=== PATIENT | female | born 1945 | race Caucasian/White ===

== ENCOUNTER → 2017-10-16 | Outpatient (CLI) | payer OTHER | LOC: FIMAGING 09:54 | PROVIDERS: ATTEND Nurse Practitioner Adult Health | DX: Z12.31 Encounter for screening mammogram for malignant neoplasm of breast (principal) ==

== ENCOUNTER → 2017-10-18 | Outpatient (CLI) | payer OTHER | LOC: FIMAGING 08:55 | PROVIDERS: ATTEND Nurse Practitioner Adult Health | DX: R19.01 Right upper quadrant abdominal swelling, mass and lump (principal); R06.02 Shortness of breath ==

== ENCOUNTER 2018-11-07 15:35 | Inpatient (IN) | payer OTHER ==
--- NOTE | 2018-11-07 15:52 | EDPHY ---
H & P Stated Complaint: Dx c flu today, breath Tx x2, low sats. Denies N/V/D. Time Seen by Provider: 11/07/18 15:52 - Personal History Current Tetanus/Diphtheria Vaccine: Unsure - Medical/Surgical History Hx Asthma: No Hx Chronic Respiratory Disease: No Hx Diabetes: No Hx Cardiac Disease: No Hx Renal Disease: No Hx Cirrhosis: No Hx Alcoholism: No Hx HIV/AIDS: No Hx Splenectomy or Spleen Trauma: No Other PMH: none - Social History Smoking Status: Former smoker Constitutional: Initial Vital Signs Temperature (C) 36.7 C 11/07/18 15:41 Heart Rate 85 11/07/18 15:41 Respiratory Rate 18 11/07/18 15:41 Blood Pressure 119/83 H 11/07/18 15:41 O2 Sat (%) 96 11/07/18 15:41 O2 Delivery Mode Room Air Allergies/Adverse Reactions: No Known Allergies Allergy (Verified 11/07/18 15:40) Home Medications: Medication Instructions Recorded Levothyroxine [Synthroid 100 mcg 100 mcg PO DAILY06 05/25/13 (RX)] Liothyronine Sodium [Cytomel 25 12.5 mcg PO DAILY 05/25/13 mcg (RX)] Sertraline HCl [Zoloft 100mg (RX)] 100 mg PO DAILY 05/25/13 Medical Decision Making ED Course/Re-evaluation: CHIEF COMPLAINT: Shortness of breath HISTORY OF PRESENT ILLNESS: 73-year-old female with a 3 day history of influenza. She was at Urgent Care for 2 or 3 hr prior to her presentation here. She had a chest x-ray done that was unremarkable. She tested positive for influenza. There are no laboratory studies done. They gave her couple nebulizer treatments but she still has very severe wheezing and is still working hard to breathe and still slightly hypoxemic in the high 80s so they sent her here for further evaluation. REVIEW OF SYSTEMS: A comprehensive 10 system review of systems is otherwise negative aside from elements mentioned in the history of present illness and medical decision making. PHYSICAL EXAM: HR, BP, O2 Sat, RR. Temp noted General Appearance: Alert, well hydrated, appropriate, and non-toxic appearing. Head: Atraumatic without scalp tenderness or obvious injury Eyes: Pupils equal, round, reactive to light and accommodation, EOMI, no trauma , no injection. Ears: Clear bilaterally, no perforation, normal landmarks Nose: Atraumatic, no rhinorrhea, clear. Throat: There is no erythema or exudates, no lesions, normal tonsils, mucus membranes moist. Neck: Supple, 2+ carotid upstroke, nontender, no lymphadenopathy. Respiratory: Significant wheezes with poor air movement in all lung delarosa. I reviewed the chest x-ray which is unremarkable for infiltrate. No focal decrease in breath sounds. Prolonged expiratory phase. Cardiovascular: Regular rate and rhythm, no murmurs, rubs, or gallops. Bilateral carotid, radial, dorsalis pedis, and posterior tibial pulses intact. Good capillary refill all extremities. Gastrointestinal: Abdomen is soft, nontender, non-distended, no masses, no rebound, no guarding, no peritoneal signs. Musculoskeletal: Normal active ROM of all extremities, atraumatic. Neurological: Alert, appropriate, and interactive. The patient has normal DTRs and non-focal cranial nerves, motor, sensory, and cerebellar exam. Skin: No rashes, good turgor, no nodules on palpation. Past medical history: Asthma as a younger individual Past surgical history: Noncontributory Family history: Noncontributory Social history: Lives half the year here and half in [place]. Has been here quite a while and is not new to altitude. She is here with her daughter. She is generally quite healthy. And has not had any significant asthma exacerbation DIAGNOSTICS/PROCEDURES/CRITICAL CARE TIME: Study: PA and Lateral Chest X-ray Indication: Interpreted from [facility] urgent care Results: After viewing the images myself on the PACS system. My interpretation of the images is: Mild bronchitis no infiltrate. The radiologist interpretation is pending at the time of this dictation. DIFFERENTIAL DIAGNOSIS: The differential diagnosis for the patient's shortness of breath and hypoxemia included but was not limited to pneumonia, myocardial infarction, acute mountain sickness, high altitude pulmonary edema, congestive heart failure, and pulmonary embolus. MEDICAL DECISION MAKING: This patient is able to maintain a room air oxygen saturation of 90-92% by working quite hard. I gave her a duo nebulizer treatment. I gave her 125 of Solu-Medrol. I have discussed the case with Dr. stone from the hospitalist service and she will accept the patient. On serial examination the patient is feeling slightly better and maintain her saturation but she certainly requires oxygen overnight and additional breathing treatments. We did not decide to treat her with Tamiflu as she has had symptoms for 3-4 days at this point and has some borderline renal insufficiency. - Data Points Medications Given: Discontinued Medications Albuterol/Ipratropium (Duoneb) 3 ml IH EDNOW ONE Stop: 11/07/18 16:13 Last Admin: 11/07/18 16:17 Dose: 3 ml Methylprednisolone Sodium Succinate (Solu-Medrol) 125 mg IVP EDNOW ONE Stop: 11/07/18 16:10 Last Admin: 11/07/18 16:17 Dose: 125 mg Departure - Departure Disposition: [facility] Inpatient Acute Clinical Impression: Influenza A, Hypoxemia Reactive airway disease with acute exacerbation Qualifiers: Asthma severity: moderate Asthma persistence: persistent Qualified Code(s): J45.41 - Moderate persistent asthma with (acute) exacerbation Condition: Fair
[2018-11-07] MEDS ORDERED: methylPREDNISolone SOD SUCC 125 MG/2 ML VIAL IVP ONE (16:09)
[2018-11-07] MEDS ORDERED: IPRATROPIUM/ALBUTEROL 3 ML DEYVIAL IH ONE (16:12)
[2018-11-07] MEDS ORDERED: ONDANSETRON DISINTEGRATING 4 MG TAB PO PRN (16:23)
[2018-11-07] MEDS ORDERED: ACETAMINOPHEN 325 MG TAB PO PRN (16:23)
[2018-11-07] MEDS ORDERED: ONDANSETRON 4 MG/2 ML VIAL IVP PRN (16:23)
[2018-11-07 16:32] LABS: PLATELET COUNT 161 10^3/uL (150-400)
--- NOTE | 2018-11-07 16:59 | PDGENHP ---
<Vianney Cochran - Last Filed: 11/07/18 18:07> History and Physical - Chief Complaint Fevers, productive cough - History of Present Illness HPI: 73 y/o female with hx of asthma, hypothyroidism, and depression presents to the emergency room with fevers, productive cough and shortness of breath. Before coming to ER, she was seen at urgent care [facility] [address] where a CXR was taken and respiratory testing which revealed she has influenza and mild perihilar bronchitis w/o focal infiltrate. She was wheezing severely and hypoxemic on RA, she received 2x respiratory tx while there however continued to be wheezing and slightly hypoxemic in the high 80s and sent to ER. She reports she has had bouts of bronchitis and she had an episode not too long ago; took mucinex for 7 or so days and thought she was improving. However, starting on Monday she felt feverish (max temperature 100.7F) and chills, productive (clear sputum) cough and wheezing. She feared she had pneumonia and that is why she initially presented to urgent care for medical assistance. Denies chest pains, palpitations, nausea. She lives 6 months here in [place] and 6 months in [place]; she was to go back to [place] today but had to cancel her trip. She is a former smoker, stopped at age 40 y/o. She was diagnosed with asthma when she was a child but never needed anything for it up until recently where she does have a rescue inhaler and has been using it quite frequently during her illness. She is being admitted for treatment and monitoring. History Information - Allergies/Home Medication List Allergies/Adverse Reactions: No Known Allergies Allergy (Verified 11/07/18 15:40) Home Medications: Sertraline HCl [Zoloft 100mg (*)] 100 mg PO DAILY 05/25/13 [Last Taken 11/06/18] Acetaminophen [Tylenol ES 500 mg (*)] 500 mg PO Q6 PRN 11/07/18 [Last Taken ] Aspirin [Aspirin 325 mg (*)] 325 mg PO Q6H PRN 11/07/18 [Last Taken 11/04/18] Levothyroxine [Synthroid 88 mcg (*)] 88 mcg PO DAILY06 11/07/18 [Last Taken ] buPROPion XL [Wellbutrin 150mg XL] 150 mg PO DAILY 11/07/18 [Last Taken 11/06/18 ] I have personally reviewed and updated: family history, medical history, social history, surgical history Past Medical History: Depression, Hypothyroidism - Past Medical History asthma - Surgical History Reports: hysterectomy (Partial) Additional surgical history: Endometrial sx - Family History Positive for: non-pertinent - Social History Smoking Status: Former smoker Alcohol Use: Occasionally (One glass of wine a night) Drug Use: None Review of Systems Review of Systems: ROS: 10pt was reviewed & negative except for what was stated in HPI & below Physical Exam Physical Exam: Lab data and imaging were reviewed. Case discussed with admitting physician, Dr. Constance Ratliff Temp Pulse Resp BP Pulse Ox 36.7 C 85 18 119/83 H 96 11/07/18 15:41 11/07/18 15:41 11/07/18 15:41 11/07/18 15:41 11/07/18 15:41 Constitutional: appears nourished, not in pain, other (Pleasant, cooperative female in slight distress. She is saturating RA 95% after receiving a total of 3 respiratory tx + solu-medrol.) Eyes: PERRL, anicteric sclera, EOMI Ears, Nose, Mouth, Throat: moist mucous membranes, hearing normal, ears appear normal, no oral mucosal ulcers Cardiovascular: regular rate and rhythym, no murmur, rub, or gallop, No edema Peripheral Pulses: 2+: dorsalis-pedis (R) (Radial 2+), dorsalis-pedis (L) ( Radial 2+) Respiratory: expiratory wheeze (Continues to wheeze but not audible w/o stethoscope. Able to carry on full sentence conversations w/o feeling out of breath) Gastrointestinal: normoactive bowel sounds, soft, non-tender abdomen, no palpable masses Genitourinary: no bladder fullness, no bladder tenderness Skin: warm, normal color, no rashes or abrasions, no fluctuance, no induration, No mottled Musculoskeletal: full muscle strength, no muscle tenderness, normal joint ROM, no joint effusions Neurologic: AAOx3, sensation intact bilaterally, CN II-XII Intact Psychiatric: interacting appropriately, not anxious, not encephalopathic, thought process linear Lymph, Heme, Immunologic: no cervical LAD, no supraclavicular LAD Lab Data & Imaging Review 11/07/18 16:18 11/07/18 16:18 WBC 3.88 10^3/uL (3.80-9.50) 11/07/18 16:18 RBC 4.53 10^6/uL (4.18-5.33) 11/07/18 16:18 Hgb 13.7 g/dL (12.6-16.3) 11/07/18 16:18 Hct 42.4 % (38.0-47.0) 11/07/18 16:18 MCV 93.6 fL (81.5-99.8) 11/07/18 16:18 MCH 30.2 pg (27.9-34.1) 11/07/18 16:18 MCHC 32.3 g/dL (32.4-36.7) L 11/07/18 16:18 RDW 13.4 % (11.5-15.2) 11/07/18 16:18 Plt Count 161 10^3/uL (150-400) 11/07/18 16:18 MPV 9.8 fL (8.7-11.7) 11/07/18 16:18 Neut % (Auto) 73.7 % (39.3-74.2) 11/07/18 16:18 Lymph % (Auto) 17.8 % (15.0-45.0) 11/07/18 16:18 [place] % (Auto) 6.4 % (4.5-13.0) 11/07/18 16:18 Eos % (Auto) 1.5 % (0.6-7.6) 11/07/18 16:18 Baso % (Auto) 0.3 % (0.3-1.7) 11/07/18 16:18 Nucleat RBC Rel Count 0.0 % (0.0-0.2) 11/07/18 16:18 Absolute Neuts (auto) 2.86 10^3/uL (1.70-6.50) 11/07/18 16:18 Absolute Lymphs (auto) 0.69 10^3/uL (1.00-3.00) L 11/07/18 16:18 Absolute Monos (auto) 0.25 10^3/uL (0.30-0.80) L 11/07/18 16:18 Absolute Eos (auto) 0.06 10^3/uL (0.03-0.40) 11/07/18 16:18 Absolute Basos (auto) 0.01 10^3/uL (0.02-0.10) L 11/07/18 16:18 Absolute Nucleated RBC 0.00 10^3/uL (0-0.01) 11/07/18 16:18 Immature Gran % 0.3 % (0.0-1.1) 11/07/18 16:18 Immature Gran # 0.01 10^3/uL (0.00-0.10) 11/07/18 16:18 Sodium 136 mEq/L (135-145) 11/07/18 16:18 Potassium 3.5 mEq/L (3.5-5.2) 11/07/18 16:18 Chloride 104 mEq/L (97-110) 11/07/18 16:18 Carbon Dioxide 22 mEq/l (22-31) 11/07/18 16:18 Anion Gap 10 mEq/L (6-14) 11/07/18 16:18 BUN 21 mg/dL (7-23) 11/07/18 16:18 Creatinine 1.0 mg/dL (0.6-1.0) 11/07/18 16:18 Estimated GFR 54 11/07/18 16:18 Glucose 173 mg/dL (70-100) H 11/07/18 16:18 Calcium 8.7 mg/dL (8.5-10.4) 11/07/18 16:18 Assessment & Plan Plan: 73 y/o female with hx of asthma, former smoker, and bronchitis presenting with 3 days worth of productive cough and severe wheezing. Today, she tested positive for influenza and bronchitis/COPD. 1. Influenza A: Reportedly has influenza however do not see testing in the system. Will get resp panel to confirm diagnosis. She is not a tamiflu candidate b/c symptoms present > 48 hours. Treat symptoms conservatively with anti-emetics PRN. 2. Productive cough and wheezing: I suspect this is some form of COPD considering her hx of smoking and asthma - Cont duoneb tx. She received solu- medrol in ED, will continue one more dose 60 mg at 2200 tonight. Scheduled to start PO Prednisone in AM and recommend steroid burst. 3. Hypothyroidism: on levothyroxine 4. Depression: on sertraline Diet: Regular VTE ppx: SCDs Code: Full Dispo: Admit to obs <Constance Ratliff - Last Filed: 11/12/18 14:33> History and Physical - History of Present Illness Review of Systems Review of Systems: Physical Exam Physical Exam: Temp Pulse Resp BP Pulse Ox 36.7 C 68 16 137/60 H 93 11/09/18 08:00 11/09/18 08:00 11/09/18 08:00 11/09/18 08:00 11/09/18 08:00 Lab Data & Imaging Review 11/07/18 16:18 11/07/18 16:18 WBC 3.88 10^3/uL (3.80-9.50) 11/07/18 16:18 RBC 4.53 10^6/uL (4.18-5.33) 11/07/18 16:18 Hgb 13.7 g/dL (12.6-16.3) 11/07/18 16:18 Hct 42.4 % (38.0-47.0) 11/07/18 16:18 MCV 93.6 fL (81.5-99.8) 11/07/18 16:18 MCH 30.2 pg (27.9-34.1) 11/07/18 16:18 MCHC 32.3 g/dL (32.4-36.7) L 11/07/18 16:18 RDW 13.4 % (11.5-15.2) 11/07/18 16:18 Plt Count 161 10^3/uL (150-400) 11/07/18 16:18 MPV 9.8 fL (8.7-11.7) 11/07/18 16:18 Neut % (Auto) 73.7 % (39.3-74.2) 11/07/18 16:18 Lymph % (Auto) 17.8 % (15.0-45.0) 11/07/18 16:18 [place] % (Auto) 6.4 % (4.5-13.0) 11/07/18 16:18 Eos % (Auto) 1.5 % (0.6-7.6) 11/07/18 16:18 Baso % (Auto) 0.3 % (0.3-1.7) 11/07/18 16:18 Nucleat RBC Rel Count 0.0 % (0.0-0.2) 11/07/18 16:18 Absolute Neuts (auto) 2.86 10^3/uL (1.70-6.50) 11/07/18 16:18 Absolute Lymphs (auto) 0.69 10^3/uL (1.00-3.00) L 11/07/18 16:18 Absolute Monos (auto) 0.25 10^3/uL (0.30-0.80) L 11/07/18 16:18 Absolute Eos (auto) 0.06 10^3/uL (0.03-0.40) 11/07/18 16:18 Absolute Basos (auto) 0.01 10^3/uL (0.02-0.10) L 11/07/18 16:18 Absolute Nucleated RBC 0.00 10^3/uL (0-0.01) 11/07/18 16:18 Immature Gran % 0.3 % (0.0-1.1) 11/07/18 16:18 Immature Gran # 0.01 10^3/uL (0.00-0.10) 11/07/18 16:18 Sodium 136 mEq/L (135-145) 11/07/18 16:18 Potassium 3.5 mEq/L (3.5-5.2) 11/07/18 16:18 Chloride 104 mEq/L (97-110) 11/07/18 16:18 Carbon Dioxide 22 mEq/l (22-31) 11/07/18 16:18 Anion Gap 10 mEq/L (6-14) 11/07/18 16:18 BUN 21 mg/dL (7-23) 11/07/18 16:18 Creatinine 1.0 mg/dL (0.6-1.0) 11/07/18 16:18 Estimated GFR 54 11/07/18 16:18 Glucose 173 mg/dL (70-100) H 11/07/18 16:18 POC Glucose 94 mg/dL (70-100) 11/09/18 12:36 Calcium 8.7 mg/dL (8.5-10.4) 11/07/18 16:18 Assessment & Plan Plan: Patient seen and evaluated independently and care plan reviewed with MARK Cochran, agree with her assessment and plan as outlined above. Please see separate documentation for further details.
[2018-11-07] MEDS ORDERED: ALBUTEROL 3 ML DEYVIAL IH PRN (17:31)
[2018-11-07] MEDS ORDERED: D50W 25 GM/50 ML SYR IVP PRN (17:32)
--- NOTE | 2018-11-07 17:46 | HOSPPROG ---
Hospitalist Progress Note Assessment/Plan: 73 yo F with PMH of likely COPD as well as hypothyroid presenting from urgent care with complaints of several days of fever, cough, sob and found to have exacerbation of copd versus RAD with report of influenza from urgent care # acute exacerbation of COPD/RAD: patient notes childhood hx of asthma but also 20+ year smoking hx and likely COPD, noted to have extensive expiratory wheeze and decreased breath sounds, increased wob on exam. She has been treated aggressively in the ER with improvement of her o2 sats but otherwise sxs remain. Will observe overnight with scheduled duonebs, prn albuterol nebs and continued IV steroids with plan to transition to oral pred in am. # ? influenza: reported from urgent care but on review there is no report of labs or influenza swab only an xray from that visit, will get respiratory panel pcr to confirm, sxs have been present for 3 days so tamiflu likely not of benefit at this time # acute hypoxic respiratory failure: with o2 sats in the high 80s at urgent care and on arrival to the ER with associated significant sob/increased wob and only able to speak in 2-3 word sentences. Significantly improved s/p serial breathing treatments as above. No e/o pna and presumed all due to acute bronchitis with exacerbation of underlying copd/rad due to viral illness as above # hyperglycemia: with recent A1c of 5.8, elevation likely due to acute infection as well as steroids, SSI as needed # observation status Patient new to my care. Old records reviewed and summarized as above, care plan reviewed with MARK Cochran and ER doctor. Please see MARK Cochran's H&P for further details. Objective: Vital Signs Temp Pulse Resp BP Pulse Ox 36.5 C 82 20 162/66 H 95 11/07/18 17:13 11/07/18 17:13 11/07/18 17:13 11/07/18 17:13 11/07/18 17:13 Laboratory Results 11/07/18 16:18 11/07/18 16:18 ICD10 Worksheet Patient Problems: Problems Problem Status Onset Influenza A Acute Hypoxemia Acute Reactive airway disease with acute exacerbation Acute
[2018-11-07] MEDS: INSULIN LISPRO 100 UNIT/ML SC SCH (18:23)
[2018-11-07] MEDS ORDERED: methylPREDNISolone SOD SUCC 125 MG/2 ML VIAL IVP SCH (22:00)
[2018-11-07] MEDS: IPRATROPIUM/ALBUTEROL 3 ML DEYVIAL IH SCH (22:07)
[2018-11-07] MEDS: diphenhydrAMINE 25 MG CAP PO PRN (23:21)
[2018-11-08] MEDS: IPRATROPIUM/ALBUTEROL 3 ML DEYVIAL IH SCH ×4 (05:10→21:16)
[2018-11-08] MEDS: LEVOTHYROXINE 88 MCG TAB PO SCH (05:27)
[2018-11-08] MEDS: INSULIN LISPRO 100 UNIT/ML SC SCH ×3 (08:09→18:10)
[2018-11-08] MEDS: buPROPion XL 150 MG TAB PO SCH (08:30)
[2018-11-08] MEDS: SERTRALINE HCL 100 MG TAB PO SCH (08:30)
--- NOTE | 2018-11-08 10:55 | ASMTCMCOM ---
CM Note CM Note Notes: Pt is a 73 y/o female admitted for influenza with hypoxemia and reactive airways disease. Pt will most likely d/c independent when medically stable. No therapies ordered at this time. CM available for changes. Plan: Independent Date Signed: 11/08/2018 10:55 AM Electronically Signed By:BENJY Melendez
--- NOTE | 2018-11-08 13:26 | HOSPPROG ---
Hospitalist Progress Note Assessment/Plan: 73 yo F with PMH of likely COPD as well as hypothyroid presenting from urgent care with complaints of several days of fever, cough, sob and found to have exacerbation of copd versus RAD with report of influenza from urgent care. First encounter, chart reviewed. # acute exacerbation of COPD/RAD -patient has had 3 bouts of bronchitis this past year -encouraged her to see a strip polisher in the OP setting -hx of asthma as a child and 20 + years of smoking -was treated w IV steroids, now on oral -will add Azithromycin for bronchitis -lungs w significant wheezing, rhonchi, poor expiratory effort # Influenza A H3 -symptoms started this past Monday so Tamiflu not ordered -supportive care # acute hypoxic respiratory failure -on room air # hyperglycemia: with recent A1c of 5.8, elevation likely due to acute infection as well as steroids, SSI as needed #plan: has poor lung sounds and with the influenza along w COPD she will need another midnight stay for monitoring her respiratory status. Subjective: Khushi is feeling weak, exhausted from coughing. Objective: Vital Signs Temp Pulse Resp BP Pulse Ox 36.8 C 81 18 136/65 H 93 11/08/18 11:49 11/08/18 11:49 11/08/18 11:49 11/08/18 11:49 11/08/18 11:49 Microbiology 11/07/18 18:11 Respiratory Panel (PCR) - Final Nasal, Sinus - Swab Influenza Virus Type A H3 Laboratory Results 11/07/18 16:18 11/07/18 16:18 11/07/18 11/08/18 11/09/18 05:59 05:59 05:59 Intake Total 50 Balance 50 - Physical Exam Constitutional: chronically ill appearing Eyes: PERRL Ears, Nose, Mouth, Throat: hearing normal Cardiovascular: regular rate and rhythym Respiratory: reduced air movement (has poor expiratory effort, scattered wheezes w rhonchi scattered throughout, lung sounds very diminshed at the bases) Skin: warm Musculoskeletal: generalized weakness Neurologic: AAOx3 Psychiatric: interacting appropriately, not anxious ICD10 Worksheet Patient Problems: Problems Problem Status Onset Hypoxemia Acute Influenza A Acute Reactive airway disease with acute exacerbation Acute
[2018-11-08] MEDS ORDERED: AZITHROMYCIN 250 MG TAB PO ONE (13:51)
[2018-11-08] MEDS ORDERED: MAG HYDROX/AL HYDROX/SIMETH 30 ML UDCUP PO PRN (14:41)
[2018-11-08] MEDS: predniSONE 20 MG TAB PO SCH (14:47)
[2018-11-08] MEDS: diphenhydrAMINE 25 MG CAP PO PRN (23:35)
[2018-11-09] MEDS: IPRATROPIUM/ALBUTEROL 3 ML DEYVIAL IH SCH ×3 (05:43→16:00)
[2018-11-09] MEDS: LEVOTHYROXINE 88 MCG TAB PO SCH ×2 (06:25→10:14)
[2018-11-09 08:08] VITALS: BP 137/60
[2018-11-09] MEDS ORDERED: AZITHROMYCIN 250 MG TAB PO SCH (09:00)
--- NOTE | 2018-11-09 09:57 | PDMN ---
Medical Necessity Medical necessity: Change to IP, as of 11/08/18, per AUTOMATIC VULCANIZING LEAD OPERATOR & MCG M-100; los >2 mn for ongoing management of COPD/RAD exacerbation in the setting of Influenza A; requiring further monitoring & supportive care
[2018-11-09] MEDS: buPROPion XL 150 MG TAB PO SCH (10:11)
[2018-11-09] MEDS: predniSONE 20 MG TAB PO SCH (10:11)
[2018-11-09] MEDS: INSULIN LISPRO 100 UNIT/ML SC SCH ×2 (10:11→13:53)
[2018-11-09] MEDS: SERTRALINE HCL 100 MG TAB PO SCH (10:12)
--- NOTE | 2018-11-09 17:26 | GDS ---
[f rep st] DISCHARGE SUMMARY DISCHARGE DIAGNOSES: 1. Acute chronic obstructive pulmonary disease exacerbation. 2. Influenza AH3. 3. Acute hypoxemic respiratory failure. 4. Hyperglycemia. PHYSICAL EXAM: GENERAL: The patient is alert. VITAL SIGNS: Afebrile at 36.7, pulse 68, respiratory r ate 16, blood pressure is 137/60. She is saturating 93% on room air. I have seen evaluated the patien t on the day of discharge. HOSPITAL COURSE: The patient is a 73-year-old female who presented to the emergency room with compla ints of shortness of breath. She was evaluated and diagnosed with: 1. Acute COPD exacerbation. During this hospitalization, she received steroids, as well as nebulizin g treatment. She was initiated on azithromycin for possible bronchitis. Her symptoms have significant ly improved and she will follow up with her associate entertainment editor in the outpatient setting. 2. Influenza AH3. These symptoms started more than 4 days ago. She has not been initiated on Tamiflu . Her symptoms are significantly improving. 3. Acute hypoxemic respiratory failure. This has resolved in the setting of influenza, as well as li cristi bronchitis. 4. Hyperglycemia. A1c is 5.8. Infection is likely secondary to the patient's steroids, as well as in fectious process. DISPOSITION: She will be discharged home with her family. PENDING STUDIES: There are no pending studies. FOLLOWUP: Will be with her primary care physician. DISCHARGE MEDICATIONS: I have provided a prescription for azithromycin 250 mg daily #3, as well as p rednisone 40 mg daily for 2 more days. TIME SPENT WITH PATIENT: I spent greater than 35 minutes in the care, coordination, and management o f the patient's discharge. /[id number]/MODL
== END 2018-11-09 16:03 | disposition home or self-care (01) | DRG 190 ==
LOC: F3E 17:08 → OBSVTOIN 11-08 16:18
PROVIDERS: ADMIT Internal Medicine; ATTEND Internal Medicine
DX: J44.1 Chronic obstructive pulmonary disease with (acute) exacerbation (principal); J44.0 Chronic obstructive pulmonary disease with (acute) lower respiratory infection; J20.9 Acute bronchitis, unspecified; J10.1 Influenza due to other identified influenza virus with other respiratory manifestations; J96.01 Acute respiratory failure with hypoxia; Z87.891 Personal history of nicotine dependence; E03.9 Hypothyroidism, unspecified; F32.9 Major depressive disorder, single episode, unspecified
CPT/HCPCS: 96374; G0378; J2930; J7512

== ENCOUNTER → 2018-11-07 | Outpatient (CLI) | payer OTHER | LOC: BMCIMAGING 13:27 | PROVIDERS: ATTEND Family Medicine | DX: J40 Bronchitis, not specified as acute or chronic (principal) ==